=== PATIENT | female | born 1965 | race Two or more races ===

== ENCOUNTER → 2016-12-22 | Outpatient (CLI) | payer BC ==
--- NOTE | 2016-12-22 15:46 | KCIC ---
MRI Lumbar Spine without contrast History: Lumbar radiculopathy, occasional right leg numbness, low back pain radiating to the left leg for 9 months Technique: Multiplanar, multi sequential noncontrast MR imaging was performed of the lumbar spine. Contrast: None Comparison: None Findings: Most inferior fully formed intervertebral disc space is considered L5-S1 for this report. Lumbar vertebral body stature is adequate. Conus terminates at T12-L1. There is no significant marrow edema. There is posterior annular tear L4-5, also anterior annular tears L3-4 and L4-5. There is mild disc desiccation at L3-4 and very minimally at L4-5, intervertebral disc spaces overall maintained. AP alignment is overall adequate. There is likely small hemangioma of the L1 vertebral body. L3-L4: There is very minimal posterior disc osteophyte complex. Spinal canal and neural foramina are adequate. L4-5: There is minimal posterior bulge. There is minimal narrowing of the far lateral recesses greater on the right. Neural foramina are adequate. L5-S1: Spinal canal and neural foramina are adequate. Impression: 1. There is minimal narrowing of the far lateral recesses greater on the right at L4-5 by minimal bulge. There are annular tears as stated. There is no significant lumbar neural foramina compromise. Electronically signed by: Milan Melgoza MD (12/22/2016 3:43 PM) [id number]
== END | disposition home or self-care (01) ==
LOC: KCIC MRI 14:18
PROVIDERS: ATTEND Internal Medicine
DX: M54.16 Radiculopathy, lumbar region (principal); M51.36 Other intervertebral disc degeneration, lumbar region; R20.0 Anesthesia of skin
CPT/HCPCS: 72148

== ENCOUNTER → 2017-11-22 | Day surgery (SDC) | payer OTHER, BC ==
[~2017-11-22] MED LIST: LIDOCAINE 2% PF Vial for OR 5 ML VIAL.; PROPOFOL 40 ML IV
[2017-11-22] MEDS: IV RINGERS,LACTATED 1000ML 1,000 ML IV ×2 (08:51)
== END | disposition home or self-care (01) ==
LOC: ENDOS 08:24
DX: Z12.11 Encounter for screening for malignant neoplasm of colon (principal); E78.00 Pure hypercholesterolemia, unspecified; E11.9 Type 2 diabetes mellitus without complications; K21.9 Gastro-esophageal reflux disease without esophagitis; F41.9 Anxiety disorder, unspecified; F32.9 Major depressive disorder, single episode, unspecified; D64.9 Anemia, unspecified; Z90.710 Acquired absence of both cervix and uterus; M15.0 Primary generalized (osteo)arthritis; Z83.3 Family history of diabetes mellitus; Z82.49 Family history of ischemic heart disease and other diseases of the circulatory system; Z82.61 Family history of arthritis; Z79.899 Other long term (current) drug therapy; Z79.84 Long term (current) use of oral hypoglycemic drugs; Z90.49 Acquired absence of other specified parts of digestive tract
CPT/HCPCS: 45378; J2001; J2704

== ENCOUNTER → 2018-08-09 | Outpatient (CLI) | payer SELFPAY ==
[2017-11-22 09:44] VITALS: BP 133/67
[~2018-08-09] MED LIST changes: +CETI10TA22 PO; +FLUT9.9S NS; -LIDOCAINE 2% PF Vial for OR 5 ML VIAL.; +METF500T16 PO; -PROPOFOL 40 ML IV; +SIMV20TA3 PO
--- NOTE | 2018-08-09 17:15 | KCIC ---
Bilateral digital screening mammograms: Reason for examination: Routine screening. Comparison is made to previous 04/02/2016 and 09/18/2014 Interpretation was made with the benefit of CAD. The skin and nipples show no abnormalities. No abnormal axillary lymph nodes are seen. The breast parenchyma is heterogeneously dense. (Breast density: Category C.) There are no dominant masses, suspicious calcifications or architectural distortion. Impression: No evidence of malignancy. Recommend routine screening. Your patient's mammogram demonstrates that she has dense breast tissue (breast density category C or D), which could hide abnormalities, and if she has other risk factors for breast cancer that have been identified, she might benefit from supplemental screening tests that may be suggested by you as her ordering physician. Dense breast tissue, in and of itself, is a relatively common condition. Therefore, this information is not provided to cause undue concern, but rather to raise your awareness and to promote discussion with your patient regarding the presence of other risk factors, in addition to dense breast tissue. Your patient's mammography results will be sent to her. BI-RAD Category 1: Negative. "Our facility is accredited by the [employer] Mammography Program." This patient's information has been entered into a reminder system for the patient to be notified with the results of her examination and a target date for the next mammogram. Electronically signed by: Evelin Ledezma MD (08/09/2018 5:12 PM) [id number]
== END | disposition home or self-care (01) ==
LOC: KCIC MAMMO 11:22
PROVIDERS: ATTEND Internal Medicine
DX: Z12.31 Encounter for screening mammogram for malignant neoplasm of breast (principal)
CPT/HCPCS: 77067